=== PATIENT | male | born 1955 ===

== ENCOUNTER 2024-09-04 13:26 | Outpatient (AMB) | payer MEDICARE, SELFPAY ==
--- NOTE | 2024-09-04 13:32 | ORTHONT_ITS ---
Vital signs 09/04/24 13:38 Height 1.8 m Height Method Measured Weight 96.842 kg Weight Measurement Method Standing Scale BMI 29.7 BP 148/72 H Blood Pressure Source Automatic Cuff Blood Pressure Location Right Upper Arm Position Sitting Respiration 18 Pulse 83 Pulse Source Monitor Temp 98.1 F Temp Source Temporal Artery Scan Pulse Oximetry (%) 98 Oxygen Delivery Method Room Air Med/Allergies Allergies & Medications Allergies No Known Allergies Allergy (Verified 09/04/24 13:39) Medication Reconciliation meloxicam 7.5 mg tablet 7.5 mg PO QDAY #45 tabs 09/04/24 [Rx] Exam Exam Patient is in no acute distress and is cooperative with the examination today. Breathing is nonlabored. In no respiratory distress. Bilateral extremities were evaluated and demonstrates sensation intact to light touch. Palpable pedal pulses are present. No significant edema is present. Bilateral hips were examined. The patient has no pain with log roll of the hips. Internal rotation to 30 degrees and external rotation to 30 degrees is painless. Negative FADIR. The left knee was examined. The left knee is in varus alignment. Range of motion from 0-115 degrees. Knee is stable to varus and valgus as well as AP translation with <5mm. Patient has a negative McMurrays. There is no pain with patellofemoral compression and no crepitus noted. The knee is tender to palpation medially. The right knee was also examined. The right knee is in varus alignment. Range of motion from 0-120 degrees. Knee is stable to varus and valgus as well as AP translation with <5mm. Patient has a negative McMurrays. There is no pain with patellofemoral compression and no crepitus noted. The knee is tender to palpation medially. Assessment and Plan Problem List (1) Degenerative arthritis of knee, bilateral: Status: Acute Plan: Artur is a pleasant 69-year-old male with bilateral knee pain and arthritis. We discussed treatment options. We recommend anti-inflammatories as well as weightbearing x-rays. We will likely do injections at the next visit but I would like to see x-rays first. Will get authorization for the injections. Advanced Care Planning Discussion Advance care planning discussed with:: other Office Procedures GNS Level of Care Nursing/Assessment Patient Status: Initial/New Patient Nursing Assessment/Reassesment: Medication Reconciliation, Update PMH in EMR and Vital Signs Coordination of Care: Complex Care and Chronic Disease 1-5, Education Complex Pt/Fam, Consent,records obtained, informed consent, Lab and Imaging orders, Results/Orders obtained and Staff clarify orders New Patient Charge New Patient Point Assignment: [id number] New Patient Point Charge: CORPORATE LAW SPECIALIST Level 3 (1100-2332) [place] Intake Visit Data Collection New Patient or Established: New Patient (never been to [facility]) Reason for Visit:: BILATERAL KNEE OSTEOARTHRITIS Seen by Clinical Staff ONLY (RN/MA): No Software Engineering Supervisor Required: No PCP or OBGYN visit in last 3 months: Yes Hx Now: No Do You Feel Safe at Home: Yes Authorities Contacted: N/A Questionairres Past Medical History Past Medical History Have you ever been diagnosed with any of the following: Subjective Visit Visit for: new patient, follow up visit and knee Immunization / Flu Flu Vaccine in the Last 12 Months: Yes Flu Vaccine Exclusion Criteria: Already Received History of Present Illness Chief complaint: BILATERAL KNEE OSTEOARTHRITIS Patient is a pleasant 69-year-old male with bilateral knee pain and bilateral knee arthritis. We discussed different treatment options. He has tried ibuprofen only. He had nonweightbearing x-rays done in [place]. He reports the pain is bilaterally and is affecting his quality life. 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
[2024-09-04 13:38] VITALS: BP 148/72; PULSE 83; RESP 18; TEMP 36.7; O2SAT 98; BMI 29.7
--- NOTE | 2024-09-04 13:53 | XR_ITS ---
Examination: Bilateral knees 2 views Right lateral knee left lateral knee 2 views Bilateral axial knees single view TECHNIQUE: Bilateral AP knees standing single view, bilateral PA knees standing single view flexion Standing right lateral knee left lateral knee 2 views Bilateral axial knees single view total 5 views Date and time: September 04, 2024 1404 hours INDICATIONS: Bilateral knee pain 2 years. FINDINGS: Advanced narrowing [id number] lateral joint space right knee Significant osteoarthritis right patellofemoral joint Moderate to advanced narrowing medial joint space left knee Moderate osteoarthritis left patellofemoral joint No fractures IMPRESSION: Advanced [id number]-[id number]-rayy lateral joint space right knee Significant osteoarthritis right patellofemoral joint Moderate to advanced narrowing medial joint space left knee
== END 2024-09-04 14:19 | disposition home or self-care (01) ==
LOC: HODSRG 13:26
PROVIDERS: PCP Nurse Practitioner Family; Referring Provider Nurse Practitioner Family; Supervising Provider Orthopaedic Surgery Adult Reconstructive Orthopaedic Surgery; Visit Provider Orthopaedic Surgery Adult Reconstructive Orthopaedic Surgery
DX: M17.0 Bilateral primary osteoarthritis of knee (principal); M25.562 Pain in left knee; M25.561 Pain in right knee
CPT/HCPCS: 73564; 99203; G0463

== ENCOUNTER 2024-09-18 12:59 | Outpatient (AMB) | payer MEDICARE, SELFPAY ==
--- NOTE | 2024-09-18 13:00 | ORTHONT_ITS ---
Vital signs 09/18/24 13:05 Height 1.8 m Height Method Stated Weight 93.242 kg Weight Measurement Method Standing Scale BMI 28.8 BP 163/69 H Blood Pressure Source Automatic Cuff Blood Pressure Location Left Upper Arm Position Sitting Respiration 18 Pulse 78 Pulse Source Monitor Temp 97.5 F Temp Source Temporal Artery Scan Pulse Oximetry (%) 95 Oxygen Delivery Method Room Air Med/Allergies Allergies & Medications Allergies No Known Allergies Allergy (Verified 09/18/24 13:07) Medication Reconciliation meloxicam 7.5 mg tablet 7.5 mg PO QDAY #45 tabs 09/04/24 [Rx Confirmed 09/18/24] Exam Exam Patient is in no acute distress and is cooperative with the examination today. Breathing is nonlabored. In no respiratory distress. Bilateral extremities were evaluated and demonstrates sensation intact to light touch. Palpable pedal pulses are present. No significant edema is present. Bilateral hips were examined. The patient has no pain with log roll of the hips. Internal rotation to 30 degrees and external rotation to 30 degrees is painless. Negative FADIR. The left knee was examined. The left knee is in varus alignment. Range of motion from 0-115 degrees. Knee is stable to varus and valgus as well as AP translation with <5mm. Patient has a negative McMurrays. There is no pain with patellofemoral compression and no crepitus noted. The knee is tender to palpation medially. The right knee was also examined. The right knee is in varus alignment. Range of motion from 0-120 degrees. Knee is stable to varus and valgus as well as AP translation with <5mm. Patient has a negative McMurrays. There is no pain with patellofemoral compression and no crepitus noted. The knee is tender to palpation medially. X-rays demonstrate severe arthritis of the right knee with complete obliteration of the lateral joint space and osteophytes. There is moderate arthritis of the left knee with joint space narrowing of the medial compartment Assessment and Plan Problem List (1) Degenerative arthritis of knee, bilateral: Status: Acute Plan: Artur is a pleasant 69-year-old male with bilateral knee pain and arthritis. We discussed treatment options. He has ijwg-pi-moiq arthritis in her right knee and moderate arthritis of the left. He would like to try cortisone injections today Recommend knee cortisone injection as patient would like to proceed with conservative treatment at this time. The risks and benefits of the procedure were reviewed with the patient and patient gave verbal consent to continue with the procedure. Procedure: performed by Dr. López Using sterile technique the left knee was thoroughly prepped with alcohol, and approximately 1 cc of Depo-Medrol 80mg/mL and 4 cc of 0.2% ropivacaine was injected without resistance into the medial tibial femoral joint space. The patient tolerated the procedure. Recommend knee cortisone injection as patient would like to proceed with conservative treatment at this time. The risks and benefits of the procedure were reviewed with the patient and patient gave verbal consent to continue with the procedure. Procedure: performed by Dr. López Using sterile technique the Right knee was thoroughly prepped with alcohol, and approximately 1 cc of Depo-Medrol 80mg/mL and 4 cc of 0.2% ropivacaine was injected without resistance into the medial tibial femoral joint space. The patient tolerated the procedure. Advanced Care Planning Discussion Advance care planning discussed with:: patient and other Office Procedures GNS Level of Care Nursing/Assessment Patient Status: Established Patient Nursing Assessment/Reassesment: Medication Reconciliation, Update PMH in EMR and Vital Signs Coordination of Care: Complex Care and Chronic Disease 1-5, Education Complex Pt/Fam, Consent,records obtained, informed consent, Results/Orders obtained and Staff clarify orders Established Patient Charge Established Patient Point Assignment: 95 Established Patient Point Charge: EP Level 3 (80-115) Surgical Proc/IM SQ injection Major Surgical Procedure: Yes (BILATERAL KNEE INJECTION) Medication Given Medication Given Medication Given: Yes Documented Dose Given: 1 Route: Infiitration Medication Given Medication Given Medication Given: Yes Documented Dose Given: 1 Route: Infiitration Medication Given Medication Given Medication Given: Yes Documented Dose Given: 4 Route: Infiitration Medication Given Medication Given Medication Given: Yes Documented Dose Given: 4 Route: Infiitration Office Meds methylprednisolone acetate 80 mg/mL suspension for injection Performing Provider: Jay López MD Performing Location: [facility] Administered by: Jay López MD on 09/18/24 14:56 Dose Route Admin Location Dispensed Lot Number Expiration Date NDC Mica Patcher 80 mg intra-articular 1 mL [id number] 07/13/26 [address]-6 A [facility] methylprednisolone acetate 80 mg/mL suspension for injection Performing Provider: Jay López MD Performing Location: [facility] Administered by: Jay López MD on 09/18/24 14:56 Dose Route Admin Location Dispensed Lot Number Expiration Date [facility] Mica Patcher 80 mg intra-articular 1 mL [id number] 07/13/26 [address]-0 A [employer] ropivacaine (PF) 2 mg/mL (0.2 %) injection solution Performing Provider: Jay López MD Performing Location: [facility] Administered by: Jay López MD on 09/18/24 14:56 Dose Route Admin Location Dispensed Lot Number Expiration Date [facility] Mica Patcher 20 mL Infiltration 20 mL [id number] 12/13/25 78367-710-04 [facility] ropivacaine (PF) 2 mg/mL (0.2 %) injection solution Performing Provider: Jay López MD Performing Location: [facility] Administered by: Jay López MD on 09/18/24 14:56 Dose Route Admin Location Dispensed Lot Number Expiration Date [facility] Mica Patcher 20 mL Infiltration 20 mL [id number] 12/13/25 79423-845-15 [facility] [place] Intake Visit Data Collection New Patient or Established: Established Patient (seen at [facility] within 3 years) Reason for Visit:: 2 WEEK XRAY RESULTS Seen by Clinical Staff ONLY (RN/MA): No Beam Saw Operator Required: No PCP or OBGYN visit in last 3 months: Yes Hx Now: No Do You Feel Safe at Home: Yes Authorities Contacted: N/A Questionairres Past Medical History Past Medical History Have you ever been diagnosed with any of the following: Subjective Visit Visit for: follow up visit, knee and x-rays Immunization / Flu Flu Vaccine in the Last 12 Months: Yes Flu Vaccine Exclusion Criteria: Already Received History of Present Illness Chief complaint: BILATERAL KNEE OSTEOARTHRITIS Patient is a pleasant 69-year-old male with bilateral knee pain and bilateral knee arthritis. We discussed different treatment options. He has tried ibuprofen only. He had nonweightbearing x-rays done in [place]. He reports the pain is bilaterally and is affecting his quality life. 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
[2024-09-18 13:05] VITALS: BP 163/69; PULSE 78; RESP 18; TEMP 36.4; O2SAT 95; BMI 28.8
== END 2024-09-18 13:31 | disposition home or self-care (01) ==
LOC: HODSRG 12:59
PROVIDERS: PCP Nurse Practitioner Family; Referring Provider Nurse Practitioner Family; Supervising Provider Orthopaedic Surgery Adult Reconstructive Orthopaedic Surgery; Visit Provider Orthopaedic Surgery Adult Reconstructive Orthopaedic Surgery
DX: M17.0 Bilateral primary osteoarthritis of knee (principal); M25.562 Pain in left knee; M25.561 Pain in right knee
CPT/HCPCS: 20610; 99213; J1010; J2795; G0463